=== PATIENT | male | born 1945 | race African-American/Black ===

== ENCOUNTER 2018-08-18 10:34 | Inpatient (IN) | payer MEDICARE, MEDICAID ==
[2018-08-18] VITALS (7 sets, daily range): BP systolic 115–130; BP diastolic 72–82
[~2018-08-18] VITALS: Ht 180.3 cm; Wt 69.9 kg
[~2018-08-18 10:34] MED LIST: CHOL100046 PO; DUTA0.5C15 PO; FERR-63 PO; SIMV20TA6 PO; VERA240C2 PO; [UNRECOGNIZED DRUG - CODE] PO
[2018-08-18 12:14] LABS: EOSINOPHILS % 1.1 % (0.0-5.0); LYMPHOCYTES % 14.1 % (20.0-50.0); MEAN CORPUSCULAR HEMOGLOBIN 29.2 pg (28.0-32.0); MEAN CORPUSCULAR VOLUME 92.9 fL (80.0-94.0); MEAN PLATELET VOLUME 6.7 fl (7.4-10.4); MONOCYTES % 8.8 % (2.0-8.0); PLATELET 248 x1000/uL (130-400); RED BLOOD CELL COUNT 1.96 mill/uL (4.7-6.1); RED CELL DISTRIBUTION WIDTH 15.3 % (11.6-14.6)
[2018-08-18 12:20] LABS: CHLORIDE 112 mEq/L (98-107); HEMATOCRIT. 18.2 % (42.0-52.0); HEMOGLOBIN. 5.7 g/dL (14.0-18.0)
[2018-08-18 12:28] LABS: INR 1.1; PROTHROMBIN TIME 10.8 sec (9.1-11.1)
[2018-08-18] MEDS ORDERED: PANTOPRAZOLE SODIUM 40 MG/VIAL IV ONE (12:45)
[2018-08-18] MEDS ORDERED: POTASSIUM CHLORIDE INJ 40 MEQ in DEXT 5% WATER 250 ML IV ONE (13:00)
[2018-08-18] MEDS ORDERED: IPRATROPIUM/ALBUTEROL 0.5-3(2.5)MG/3ML NEB INH PRN (15:15)
[2018-08-18] MEDS ORDERED: GUAIFENESIN 200MG/10ML SUGAR FREE UDC PO PRN (15:15)
[2018-08-18] MEDS ORDERED: MAGNESIUM/ALUMINUM HYDROXIDE/SIMETHICONE 30ML UDC PO PRN (15:15)
[2018-08-18] MEDS ORDERED: PANTOPRAZOLE 80 MG in SODIUM CHLORIDE 0.9% 100 ML IV SCH (15:15)
[2018-08-18] MEDS ORDERED: DOCUSATE SODIUM 100MG CAPSULE PO PRN (15:15)
[2018-08-18] MEDS ORDERED: CLONIDINE 0.1MG TABLET PO PRN (15:15)
[2018-08-18] MEDS ORDERED: ACETAMINOPHEN 325MG TABLET PO PRN (15:15)
[2018-08-18] MEDS ORDERED: ONDANSETRON HCL 4MG/2ML INJ IV PRN (15:15)
[2018-08-18] MEDS ORDERED: NA PHOS,M-B/NA PHOS,DI-BA ENEMA 118ML PR PRN (15:15)
[2018-08-18 16:22] LABS: FOLIC ACID (FOLATE) SERUM >20 ng/mL ng/mL (>5.38)
[2018-08-18 17:13] LABS: VITAMIN B12 SERUM 555 pg/mL (211-911)
[2018-08-18] MEDS: PANTOPRAZOLE 80 MG in SODIUM CHLORIDE 0.9% 100 ML IV SCH (21:48)
[2018-08-19] VITALS (19 sets, daily range): BP systolic 113–140; BP diastolic 68–95
[2018-08-19] MEDS: DEXT 5%/0.45% NACL 1000ML 1,000 ML IV SCH ×3 (01:39→05:26)
[2018-08-19] MEDS: PANTOPRAZOLE 80 MG in SODIUM CHLORIDE 0.9% 100 ML IV SCH (05:55)
[2018-08-19 07:02] LABS: MEAN CORPUSCULAR HEMOGLOBIN 28.8 pg (28.0-32.0); MEAN CORPUSCULAR VOLUME 88.5 fL (80.0-94.0); PLATELET 242 x1000/uL (130-400); RED BLOOD CELL COUNT 2.34 mill/uL (4.7-6.1); RED CELL DISTRIBUTION WIDTH 17.2 % (11.6-14.6)
[2018-08-19 07:25] LABS: *AMPHETAMINES SCREEN URINE NEGATIVE (NEGATIVE); *BARBITURATES SCREEN URINE NEGATIVE (NEGATIVE); *BENZODIAZEPINES SCREEN URINE NEGATIVE (NEGATIVE); *COCAINE SCREEN URINE NEGATIVE (NEGATIVE); METHADONE URINE SCREEN NEGATIVE (NEGATIVE); OPIATES URINE SCREEN NEGATIVE (NEGATIVE); PHENCYCLIDINE URINE SCREEN NEGATIVE (NEGATIVE)
[2018-08-19 07:26] LABS: CANNABINOID URINE SCREEN PRESUMTIVE POSITIVE (NEGATIVE)
[2018-08-19 07:59] LABS: HEMATOCRIT 20.7 % (42.0-52.0); HEMOGLOBIN 6.7 g/dL (14.0-18.0)
[2018-08-19] MEDS ORDERED: INFLUENZA VIRUS VACCINE(AFLURIA) 0.5ML SYR IM ONE (09:00)
[2018-08-19] MEDS ORDERED: PNEUMOCOCCAL 23-VAL P-SAC VAC 0.5 ML IM ONE (09:00)
[2018-08-19] MEDS: PANTOPRAZOLE SODIUM 40 MG/VIAL IV SCH ×2 (12:37→20:18)
[2018-08-19 13:08] LABS: TOTAL IRON BINDING CAPACITY 274 ug/dL (250-450)
[2018-08-19] MEDS ORDERED: SORBITOL 70% SOLN 30ML PO NR ×3 (16:00→20:00)
[2018-08-19 19:42] LABS: HEMATOCRIT 28.1 % (42.0-52.0); HEMOGLOBIN 8.9 g/dL (14.0-18.0)
[2018-08-20] VITALS (13 sets, daily range): BP systolic 105–154; BP diastolic 62–101
[2018-08-20 01:15] LABS: HEMATOCRIT 27.2 % (42.0-52.0); HEMOGLOBIN 8.6 g/dL (14.0-18.0)
[2018-08-20] MEDS: DEXT 5%/0.45% NACL 1000ML 1,000 ML IV SCH ×3 (02:00→22:38)
[2018-08-20] MEDS ORDERED: SORBITOL 70% SOLN 30ML PO NR (06:00)
[2018-08-20 07:02] LABS: HEMATOCRIT 23.7 % (42.0-52.0); HEMOGLOBIN 7.7 g/dL (14.0-18.0)
[2018-08-20] MEDS: PANTOPRAZOLE SODIUM 40 MG/VIAL IV SCH ×2 (09:21→21:17)
[2018-08-20] MEDS ORDERED: MIDAZOLAM HCL 5 MG/5 ML VIAL IV ONE (13:45)
[2018-08-20] MEDS ORDERED: FENTANYL CITRATE/PF 50MCG/ML 2ML VIAL IV ONE (13:47)
[2018-08-20] MEDS ORDERED: MIDAZOLAM HCL 5 MG/5 ML VIAL ONE (13:52)
[2018-08-20] MEDS ORDERED: SIMETHICONE 40 MG/0.6 ML 30ML ONE ×2 (13:52→15:35)
[2018-08-20] MEDS ORDERED: FENTANYL CITRATE/PF 50MCG/ML 2ML VIAL ONE (13:53)
[2018-08-20] MEDS ORDERED: BACTERIOSTATIC SODIUM CHLORIDE 0.9% 30ML VIAL IJ ONE (15:35)
[2018-08-20 16:33] LABS: HEMATOCRIT 28.1 % (42.0-52.0); HEMOGLOBIN 9.2 g/dL (14.0-18.0)
[2018-08-21] VITALS (8 sets, daily range): BP systolic 104–148; BP diastolic 68–101
[2018-08-21] MEDS: PANTOPRAZOLE SODIUM 40 MG/VIAL IV SCH (09:17)
[2018-08-21] MEDS: DEXT 5%/0.45% NACL 1000ML 1,000 ML IV SCH (09:17)
[2018-08-21 12:35] LABS: HEMATOCRIT 30.4 % (42.0-52.0); HEMOGLOBIN 9.9 g/dL (14.0-18.0)
== END 2018-08-21 14:50 | disposition home or self-care (01) | DRG 378 ==
LOC: ER 10:34 → 3WST 12:38 → EDBEDREQSVC 12:41 → EDBEDREQ 12:41 → SUPCPDRO 14:17 → ENRESERV 17:50
PROVIDERS: ADMIT Internal Medicine; ATTEND Internal Medicine
PROC: 30233N1 Transfusion of Nonautologous Red Blood Cells into Peripheral Vein, Percutaneous Approach (ICD-10-PCS; 2018-08-18)
PROC: 0DJD8ZZ Inspection of Lower Intestinal Tract, Via Natural or Artificial Opening Endoscopic (ICD-10-PCS; principal; 2018-08-20)
DX: K57.31 Diverticulosis of large intestine without perforation or abscess with bleeding (principal); D62 Acute posthemorrhagic anemia; E44.0 Moderate protein-calorie malnutrition; E78.5 Hyperlipidemia, unspecified; E78.00 Pure hypercholesterolemia, unspecified; E87.6 Hypokalemia; E83.51 Hypocalcemia; I10 Essential (primary) hypertension; K76.89 Other specified diseases of liver; K40.20 Bilateral inguinal hernia, without obstruction or gangrene, not specified as recurrent; I25.10 Atherosclerotic heart disease of native coronary artery without angina pectoris; F12.90 Cannabis use, unspecified, uncomplicated; K64.8 Other hemorrhoids; N40.0 Benign prostatic hyperplasia without lower urinary tract symptoms; Z79.899 Other long term (current) drug therapy; Z68.21 Body mass index [BMI] 21.0-21.9, adult
CPT/HCPCS: 36415; 74176; 80061; 80305; 82270; 82607; 82728; 82746; 83036; 83540; 83550; 84484; 85014; 85018; 85027; 86850; 86900; 86920; 93005; 93306; 93970; 96374; 96375; 97162; 97166; 99152; 99291; C9113; J2250; J3010; J3480; J3490; J7040; J7050; J7060; P9016; G0500

== ENCOUNTER 2018-09-17 13:53 | Inpatient (IN) | payer MEDICARE, MEDICAID ==
[~2018-09-17] VITALS: Ht 180.3 cm; Wt 73.5 kg
[2018-09-17] MEDS ORDERED: NITROGLYCERIN 0.4MG TABLET SL SL PRN (15:00)
[2018-09-17] MEDS ORDERED: ASPIRIN 81MG TABLET PO ONE (15:00)
[2018-09-17 15:34] LABS: EOSINOPHILS % 1.2 % (0.0-5.0); HEMATOCRIT. 38.6 % (42.0-52.0); HEMOGLOBIN. 12.6 g/dL (14.0-18.0); LYMPHOCYTES % 14.3 % (20.0-50.0); MEAN CORPUSCULAR HEMOGLOBIN 28.7 pg (28.0-32.0); MEAN PLATELET VOLUME 7.4 fl (7.4-10.4); MONOCYTES % 9.9 % (2.0-8.0); NEUTROPHILS % 73.6 % (40.0-76.0); PLATELET 254 x1000/uL (130-400); RED BLOOD CELL COUNT 4.38 mill/uL (4.7-6.1); RED CELL DISTRIBUTION WIDTH 14.8 % (11.6-14.6)
[2018-09-17 15:37] LABS: CHLORIDE 102 mEq/L (98-107)
[2018-09-17] MEDS ORDERED: POTASSIUM CHLORIDE 20MEQ TABLET SR PO ONE (17:15)
[2018-09-17 21:28] VITALS: BP 138/86
[2018-09-17] MEDS ORDERED: IPRATROPIUM/ALBUTEROL 0.5-3(2.5)MG/3ML NEB INH PRN (23:00)
[2018-09-17] MEDS ORDERED: HYDROCODONE/ACETAMINOPHEN 5/325MG TABLET PO PRN (23:00)
[2018-09-17] MEDS ORDERED: LORAZEPAM 2MG/ML CPJ IV PRN (23:00)
[2018-09-17] MEDS ORDERED: ONDANSETRON HCL 4MG/2ML INJ IV PRN (23:00)
[2018-09-17] MEDS ORDERED: ACETAMINOPHEN 325MG TABLET PO PRN (23:00)
[2018-09-17] MEDS: THIAMINE HCL 100MG TABLET PO SCH (23:59)
[2018-09-18] VITALS: BP 138/72
[2018-09-18 00:46] LABS: CLARITY URINE CLOUDY (CLEAR); COLOR URINE YELLOW (YELLOW); KETONES URINE NEGATIVE (NEGATIVE); LEUKOCYTE ESTERASE URINE 2+ (NEGATIVE); NITRITE URINE NEGATIVE (NEGATIVE); OCCULT BLOOD URINE NEGATIVE (NEGATIVE); PH URINE 8.5 (4.5-8.0); PROTEIN URINE NEGATIVE (NEGATIVE); UROBILINOGEN URINE 0.2 E.U./dL (0.2-1.0)
[2018-09-18 04:00] VITALS: BP 135/84
[2018-09-18] MEDS ORDERED: MAGNESIUM/ALUMINUM HYDROXIDE/SIMETHICONE 30ML UDC PO PRN (06:00)
[2018-09-18 08:00] VITALS: BP 144/99
[2018-09-18 08:32] LABS: CREATINE KINASE 104 IU/L (39-308)
[2018-09-18 08:33] LABS: CREATINE KINASE MB FRACTION < 1.0 ng/mL (0.5-3.6)
[2018-09-18] MEDS: THIAMINE HCL 100MG TABLET PO SCH (08:52)
[2018-09-18] MEDS ORDERED: ENOXAPARIN 40MG/0.4ML SYR SUBCUT SCH (09:00)
[2018-09-18] MEDS ORDERED: ASPIRIN 81MG EC TABLET PO SCH (09:00)
[2018-09-18] MEDS ORDERED: VERAPAMIL HCL 80 MG TABLET PO SCH (09:00)
[2018-09-18] MEDS ORDERED: DUTASTERIDE 0.5MG CAPSULE PO SCH (09:00)
[2018-09-18] MEDS ORDERED: MEDICATION NOT ON FORMULARY EA (Verapamil Hcl (Verapamil Er) 240 MG) PO SCH (09:15)
[2018-09-18] MEDS ORDERED: CHOLECALCIFEROL 1000 UNIT PO SCH (09:15)
[2018-09-18] MEDS ORDERED: FERROUS SULFATE 325MG TABLET PO SCH ×2 (09:15→17:15)
[2018-09-18] MEDS ORDERED: CHOLECALCIFEROL (D3) 1000 UNIT TABLET PO SCH (09:30)
[2018-09-18 11:29] LABS: BASOPHILS % 1.1 % (0.0-2.0); EOSINOPHILS % 2.8 % (0.0-5.0); HEMATOCRIT. 35.8 % (42.0-52.0); HEMOGLOBIN. 11.7 g/dL (14.0-18.0); LYMPHOCYTES % 10.6 % (20.0-50.0); MEAN CORPUSCULAR HEMOGLOBIN 28.7 pg (28.0-32.0); MEAN CORPUSCULAR VOLUME 87.8 fL (80.0-94.0); MEAN PLATELET VOLUME 7.5 fl (7.4-10.4); NEUTROPHILS % 74.5 % (40.0-76.0); PLATELET 251 x1000/uL (130-400); RED BLOOD CELL COUNT 4.07 mill/uL (4.7-6.1); RED CELL DISTRIBUTION WIDTH 14.4 % (11.6-14.6)
[2018-09-18 11:35] LABS: CHLORIDE 104 mEq/L (98-107)
[2018-09-18 11:38] LABS: BG BASE EXCESS 5.8 mmol/L (-2.0-2.0); BG CARBOXYHEMOGLOBIN 0.4 % (0.5-1.5); BG DEOXYHEMOGLOBIN 4.8 % (0.0-5.0); BG FRACTION INSPIRED OXYGEN 21; BG HCO3 ACT 30.5 mmol/L (22.0-26.0); BG METHEMOGLOBIN 0.4 % (0.0-1.5); BG OXYGEN SATURATION 95.2 % (92.0-98.5); BG OXYHEMOGLOBIN 94.4 % (94.0-97.0); BG PCO2 44.7 mmHg (35.0-45.0); BG PH 7.452 (7.350-7.450); BG PO2 76.8 mmHg (75.0-100.0); BG SAMPLE SITE RIGHT BRACHIAL; BG TOTAL HEMOGLOBIN 12.9 g/dL (12.0-18.0); BG VENT MODE ROOM AIR
[2018-09-18 12:00] VITALS: BP 138/86
[2018-09-18] MEDS ORDERED: POTASSIUM CHLORIDE 20MEQ TABLET SR PO NR (12:15)
[2018-09-18 13:09] VITALS: BP 138/86
[2018-09-18] MEDS ORDERED: ATORVASTATIN CALCIUM 10MG TABLET PO SCH (21:00)
[2018-09-18] MEDS ORDERED: MEDICATION NOT ON FORMULARY EA (Simvastatin 20 MG) PO SCH (21:00)
[2018-09-19] MEDS ORDERED: VERAPAMIL HCL 80 MG TABLET PO SCH (14:00)
== END 2018-09-18 14:05 | disposition home or self-care (01) | DRG 206 ==
LOC: ER 13:53 → 5WST 17:41 → EDBEDREQTM 17:44 → EDBEDREQ 17:44 → ENRESERV 19:44
PROVIDERS: ADMIT Internal Medicine Nephrology; ATTEND Internal Medicine Nephrology
DX: M94.0 Chondrocostal junction syndrome [Tietze] (principal); E78.00 Pure hypercholesterolemia, unspecified; I10 Essential (primary) hypertension; Z87.891 Personal history of nicotine dependence; Z79.899 Other long term (current) drug therapy; E87.6 Hypokalemia
CPT/HCPCS: 36415; 36600; 71045; 80048; 82375; 82550; 82553; 82805; 83880; 84484; 93005; 93306; 93970; 99285; J1650

== ENCOUNTER 2021-12-08 15:53 | Inpatient (IN) | payer MEDICARE, MEDICAID ==
[~2021-12-08] VITALS: Ht 180.3 cm; Wt 76.5 kg
[~2021-12-08 15:53] MED LIST changes: -DUTA0.5C15 PO; +DUTA0.5C37 PO; +SIMV-43 PO; -SIMV20TA6 PO
[2021-12-08] MEDS ORDERED: mobic (16:04)
[2021-12-08] MEDS ORDERED: vitorin (16:04)
[2021-12-08] MEDS ORDERED: PANTOPRAZOLE SODIUM 40 MG/VIAL IV ONE (16:30)
[2021-12-08 16:51] LABS: MEAN CORPUSCULAR HEMOGLOBIN 19.6 pg (28.0-32.0); MEAN CORPUSCULAR VOLUME 67.2 fL (80.0-94.0); MEAN PLATELET VOLUME 6.5 fl (7.4-10.4); PLATELET 220 x1000/uL (130-400); RED BLOOD CELL COUNT 2.06 mill/uL (4.7-6.1); RED CELL DISTRIBUTION WIDTH 20.2 % (11.6-14.6)
[2021-12-08 17:01] LABS: CHLORIDE 111 mEq/L (98-107)
[2021-12-08 17:02] LABS: HEMATOCRIT. 13.9 % (42.0-52.0); HEMOGLOBIN. 4.1 g/dL (14.0-18.0)
[2021-12-08 17:09] LABS: C REACTIVE PROTEIN QUANT 0.9 mg/L (0.0-3.0); CREATINE KINASE 103 IU/L (39-308); ETHANOL BLOOD < 10 mg/dL; TOTAL IRON BINDING CAPACITY 393 ug/dL (250-450)
[2021-12-08] MEDS ORDERED: CEFTRIAXONE 1 G PREMIX 50 ML IV NR (17:30)
[2021-12-08 17:48] LABS: PLATELET ESTIMATE NORMAL
[2021-12-08] MEDS ORDERED: CLONIDINE 0.1MG TABLET PO PRN (22:15)
[2021-12-08] MEDS ORDERED: HYDROCODONE/ACETAMINOPHEN 5/325MG TABLET PO PRN (22:15)
[2021-12-08] MEDS ORDERED: DOCUSATE SODIUM 100MG CAPSULE PO PRN (22:15)
[2021-12-08] MEDS ORDERED: IPRATROPIUM/ALBUTEROL 0.5-3(2.5)MG/3ML NEB HHN PRN (22:15)
[2021-12-08] MEDS ORDERED: MAGNESIUM/ALUMINUM HYDROXIDE/SIMETHICONE 30ML UDC PO PRN (22:15)
[2021-12-08] MEDS ORDERED: MORPHINE SULFATE 2 MG/ML CPJ (NOT FOR IM USE) IV PRN (22:15)
[2021-12-08] MEDS ORDERED: GUAIFENESIN 200MG/10ML SUGAR FREE UDC PO PRN (22:15)
[2021-12-08] MEDS ORDERED: HYDRALAZINE 20MG/ML VIAL IV PRN (22:15)
[2021-12-08] MEDS ORDERED: LORAZEPAM 2MG/ML CPJ IV PRN (22:15)
[2021-12-08] MEDS ORDERED: ONDANSETRON HCL 4MG/2ML INJ IV PRN (22:15)
[2021-12-08] MEDS ORDERED: DIPHENHYDRAMINE 50MG/ML VIAL IV PRN (22:15)
[2021-12-08 22:55] LABS: CLARITY URINE CLEAR (CLEAR); COLOR URINE YELLOW (YELLOW); KETONES URINE NEGATIVE (NEGATIVE); LEUKOCYTE ESTERASE URINE 2+ (NEGATIVE); NITRITE URINE NEGATIVE (NEGATIVE); OCCULT BLOOD URINE NEGATIVE (NEGATIVE); PROTEIN URINE NEGATIVE (NEGATIVE); UROBILINOGEN URINE 0.2 E.U./dL (0.2-1.0)
[2021-12-09] VITALS (21 sets, daily range): BP systolic 115–156; BP diastolic 72–97
[2021-12-09 01:29] LABS: HEMATOCRIT 20.4 % (42.0-52.0); HEMOGLOBIN 6.3 g/dL (14.0-18.0)
[2021-12-09] MEDS: SODIUM CHLORIDE 0.9% INJ 3ML FLUSH IVF SCH ×3 (06:11→22:00)
[2021-12-09 06:44] LABS: CHLORIDE 113 mEq/L (98-107)
[2021-12-09] MEDS ORDERED: POTASSIUM CHLORIDE 20MEQ TABLET SR PO SCH (09:00)
[2021-12-09] MEDS: PANTOPRAZOLE SODIUM 40 MG/VIAL IV SCH ×2 (09:16→20:52)
[2021-12-09 09:26] LABS: BASOPHILS % 1.2 % (0.0-2.0); EOSINOPHILS % 0.9 % (0.0-5.0); HEMATOCRIT. 21.9 % (42.0-52.0); LYMPHOCYTES % 9.7 % (20.0-50.0); MEAN CORPUSCULAR HEMOGLOBIN 24.3 pg (28.0-32.0); MEAN CORPUSCULAR VOLUME 76.2 fL (80.0-94.0); MEAN PLATELET VOLUME 6.7 fl (7.4-10.4); MONOCYTES % 14.5 % (2.0-8.0); NEUTROPHILS % 73.7 % (40.0-76.0); PLATELET 152 x1000/uL (130-400); RED BLOOD CELL COUNT 2.87 mill/uL (4.7-6.1); RED CELL DISTRIBUTION WIDTH 22.9 % (11.6-14.6)
[2021-12-09 09:50] LABS: TOTAL IRON BINDING CAPACITY 354 ug/dL (250-450)
[2021-12-09 10:23] LABS: VITAMIN B12 SERUM 314 pg/mL (211-911)
[2021-12-09 10:47] LABS: FOLIC ACID (FOLATE) SERUM > 20.00 ng/mL (>5.38)
[2021-12-09 12:05] LABS: HEMATOCRIT 23.1 % (42.0-52.0); HEMOGLOBIN 7.3 g/dL (14.0-18.0)
[2021-12-09 12:06] LABS: FERRITIN 7 ng/mL (22-322)
[2021-12-09] MEDS: ACETAMINOPHEN 325MG TABLET PO PRN (13:15)
[2021-12-09] MEDS ORDERED: NALOXONE HCL 0.4MG/ML VIAL IV PRN (14:45)
[2021-12-09] MEDS: IRON SUCROSE COMPLEX 100 MG/5 ML ML IV SCH (16:16)
[2021-12-09 19:46] LABS: HEMATOCRIT 26.8 % (42.0-52.0); HEMOGLOBIN 8.6 g/dL (14.0-18.0)
[2021-12-09 19:55] LABS: PROTHROMBIN TIME 11.2 sec (9.6-11.0)
[2021-12-10] VITALS (10 sets, daily range): BP systolic 111–138; BP diastolic 44–92
[2021-12-10] MEDS: DEXT 5%/0.45% NACL 1000ML 1,000 ML IV SCH (00:26)
[2021-12-10 00:51] LABS: HEMATOCRIT 24.7 % (42.0-52.0); HEMOGLOBIN 7.9 g/dL (14.0-18.0)
[2021-12-10] MEDS: SODIUM CHLORIDE 0.9% INJ 3ML FLUSH IVF SCH ×3 (06:00→21:15)
[2021-12-10 06:03] LABS: PROTHROMBIN TIME 11.2 sec (9.6-11.0)
[2021-12-10 06:21] LABS: CHLORIDE 108 mEq/L (98-107)
[2021-12-10 06:41] LABS: BASOPHILS % 1.1 % (0.0-2.0); EOSINOPHILS % 2.2 % (0.0-5.0); HEMATOCRIT. 25.2 % (42.0-52.0); HEMOGLOBIN. 8.1 g/dL (14.0-18.0); LYMPHOCYTES % 11.1 % (20.0-50.0); MEAN CORPUSCULAR HEMOGLOBIN 24.6 pg (28.0-32.0); MEAN CORPUSCULAR VOLUME 76.3 fL (80.0-94.0); MEAN PLATELET VOLUME 8.2 fl (7.4-10.4); MONOCYTES % 12.8 % (2.0-8.0); NEUTROPHILS % 72.8 % (40.0-76.0); PLATELET 143 x1000/uL (130-400); RED CELL DISTRIBUTION WIDTH 21.6 % (11.6-14.6)
[2021-12-10] MEDS: PANTOPRAZOLE SODIUM 40 MG/VIAL IV SCH ×2 (08:41→21:15)
[2021-12-10] MEDS ORDERED: POTASSIUM CHLORIDE 20MEQ TABLET SR PO NR ×2 (09:15→10:18)
[2021-12-10] MEDS ORDERED: KCL 20MEQ/100ML PREMIX 100 ML IV NR (10:30)
[2021-12-10] MEDS ORDERED: CYANOCOBALAMIN 1000MCG/ML VIAL IM SCH (12:15)
[2021-12-10] MEDS: CYANOCOBALAMIN 1000MCG/ML VIAL SUBCUT SCH (12:45)
[2021-12-10] MEDS ORDERED: PROPOFOL 200MG/20ML VIAL IV ONE (12:57)
[2021-12-10] MEDS ORDERED: ONDANSETRON HCL 4MG/2ML INJ ONE (12:59)
[2021-12-10] MEDS ORDERED: FENTANYL CITRATE/PF 50MCG/ML 2ML VIAL ONE (13:00)
[2021-12-10] MEDS ORDERED: DEXAMETHASONE 4MG/ML 1ML VIAL ONE (13:00)
[2021-12-10] MEDS ORDERED: MIDAZOLAM HCL 2 MG/2 ML VIAL ONE (13:00)
[2021-12-10] MEDS: IRON SUCROSE COMPLEX 100 MG/5 ML ML IV SCH (16:05)
[2021-12-10 16:17] LABS: HEMATOCRIT 24.3 % (42.0-52.0); HEMOGLOBIN 7.7 g/dL (14.0-18.0)
[2021-12-10 20:32] LABS: HEMATOCRIT 30.2 % (42.0-52.0); HEMOGLOBIN 9.5 g/dL (14.0-18.0)
[2021-12-11] VITALS (12 sets, daily range): BP systolic 102–148; BP diastolic 62–85
[2021-12-11] MEDS: SODIUM CHLORIDE 0.9% INJ 3ML FLUSH IVF SCH ×3 (06:17→21:05)
[2021-12-11 06:19] LABS: HEMATOCRIT. 24.5 % (42.0-52.0); HEMOGLOBIN. 7.9 g/dL (14.0-18.0); MEAN CORPUSCULAR HEMOGLOBIN 24.9 pg (28.0-32.0); MEAN PLATELET VOLUME 6.9 fl (7.4-10.4); PLATELET 149 x1000/uL (130-400); RED BLOOD CELL COUNT 3.18 mill/uL (4.7-6.1); RED CELL DISTRIBUTION WIDTH 22.9 % (11.6-14.6)
[2021-12-11 06:25] LABS: CHLORIDE 110 mEq/L (98-107)
[2021-12-11] MEDS: CYANOCOBALAMIN 1000MCG/ML VIAL SUBCUT SCH (09:54)
[2021-12-11] MEDS: PANTOPRAZOLE SODIUM 40 MG/VIAL IV SCH ×2 (09:55→21:05)
[2021-12-11 12:24] LABS: HEMATOCRIT 25.2 % (42.0-52.0)
[2021-12-11] MEDS: IRON SUCROSE COMPLEX 100 MG/5 ML ML IV SCH (14:07)
[2021-12-11 16:33] LABS: PLATELET ESTIMATE NORMAL
[2021-12-12] VITALS (7 sets, daily range): BP systolic 122–144; BP diastolic 62–92
[2021-12-12] MEDS: DEXT 5%/0.45% NACL 1000ML 1,000 ML IV SCH (02:00)
[2021-12-12] MEDS: SODIUM CHLORIDE 0.9% INJ 3ML FLUSH IVF SCH (05:02)
[2021-12-12 07:03] LABS: BASOPHILS % 0.8 % (0.0-2.0); EOSINOPHILS % 3.6 % (0.0-5.0); HEMATOCRIT. 25.3 % (42.0-52.0); HEMOGLOBIN. 8.2 g/dL (14.0-18.0); LYMPHOCYTES % 11.2 % (20.0-50.0); MEAN CORPUSCULAR HEMOGLOBIN 25.3 pg (28.0-32.0); MEAN CORPUSCULAR VOLUME 78.6 fL (80.0-94.0); MEAN PLATELET VOLUME 8.3 fl (7.4-10.4); MONOCYTES % 12.3 % (2.0-8.0); NEUTROPHILS % 72.1 % (40.0-76.0); PLATELET 164 x1000/uL (130-400); RED BLOOD CELL COUNT 3.22 mill/uL (4.7-6.1)
[2021-12-12 07:46] LABS: CHLORIDE 111 mEq/L (98-107)
[2021-12-12] MEDS: PANTOPRAZOLE SODIUM 40 MG/VIAL IV SCH (09:15)
[2021-12-12] MEDS: CYANOCOBALAMIN 1000MCG/ML VIAL SUBCUT SCH (09:15)
[2021-12-12] MEDS ORDERED: POTASSIUM CHLORIDE 20MEQ TABLET SR PO NR (10:15)
[2021-12-12] MEDS: ACETAMINOPHEN 325MG TABLET PO PRN (10:35)
== END 2021-12-12 16:10 | disposition home or self-care (01) | DRG 378 ==
LOC: ER 15:53 → 5EST 18:50 → EDBEDREQ 19:02 → ENRESERV 22:26 → 5EST 12-09 01:04
PROVIDERS: ADMIT Internal Medicine; ATTEND Internal Medicine
PROC: 30233N1 Transfusion of Nonautologous Red Blood Cells into Peripheral Vein, Percutaneous Approach (ICD-10-PCS; principal; 2021-12-08)
PROC: 0DB78ZX Excision of Stomach, Pylorus, Via Natural or Artificial Opening Endoscopic, Diagnostic (ICD-10-PCS; 2021-12-10)
DX: K29.71 Gastritis, unspecified, with bleeding (principal); E46 Unspecified protein-calorie malnutrition; E87.0 Hyperosmolality and hypernatremia; R65.10 Systemic inflammatory response syndrome (SIRS) of non-infectious origin without acute organ dysfunction; E78.00 Pure hypercholesterolemia, unspecified; E78.5 Hyperlipidemia, unspecified; I10 Essential (primary) hypertension; I70.0 Atherosclerosis of aorta; K44.9 Diaphragmatic hernia without obstruction or gangrene; D50.0 Iron deficiency anemia secondary to blood loss (chronic); E86.0 Dehydration; E87.6 Hypokalemia; E88.09 Other disorders of plasma-protein metabolism, not elsewhere classified; K57.31 Diverticulosis of large intestine without perforation or abscess with bleeding; K40.90 Unilateral inguinal hernia, without obstruction or gangrene, not specified as recurrent; K64.8 Other hemorrhoids; K76.89 Other specified diseases of liver; Z79.899 Other long term (current) drug therapy; Z68.23 Body mass index [BMI] 23.0-23.9, adult
CPT/HCPCS: 36415; 71045; 74176; 80048; 80053; 80320; 81003; 82270; 82550; 82607; 82728; 82746; 83540; 83550; 83605; 84132; 84145; 85014; 85018; 85025; 85044; 86140; 86850; 86900; 86920; 87426; 88305; 88312; 88313; 93005; 99291; C9113; J0696; J1100; J2250; J2405; J2704; J3010; J3420; J3480; P9016; G0480

== ENCOUNTER 2023-08-17 13:06 | Emergency (ER) | payer MEDICARE, MEDICAID ==
[~2023-08-17] VITALS: Ht 180.3 cm; Wt 81.0 kg
[~2023-08-17 13:06] MED LIST changes: +mobic; +vitorin
[2023-08-17 14:02] VITALS: BP 120/74; PULSE 96; RESP 16; TEMP 98.3; O2SAT 100
[2023-08-17 14:58] LABS: BASOPHILS % 0.8 % (0.0-2.0); HEMATOCRIT. 32.6 % (42.0-52.0); HEMOGLOBIN. 10.4 g/dL (14.0-18.0); LYMPHOCYTES % 11.5 % (20.0-50.0); MEAN CORPUSCULAR HEMOGLOBIN 26.2 pg (28.0-32.0); MEAN CORPUSCULAR HGB CONC 31.7 g/dL (31.0-37.0); MEAN CORPUSCULAR VOLUME 82.4 fL (80.0-94.0); MEAN PLATELET VOLUME 7.2 fl (7.4-10.4); MONOCYTES % 8.5 % (2.0-8.0); NEUTROPHILS % 78.2 % (40.0-76.0); PLATELET 270 x1000/uL (130-400); RED BLOOD CELL COUNT 3.96 mill/uL (4.7-6.1); RED CELL DISTRIBUTION WIDTH 15.8 % (11.6-14.6); WHITE BLOOD COUNT 6.2 x1000/uL (4.5-11.0)
[2023-08-17 15:13] LABS: ALANINE AMINOTRANSFERASE 13 IU/L (10-49); ALBUMIN 4.8 g/dL (3.2-4.8); ASPARTATE AMINOTRANSFERASE 18 IU/L (<34); BILIRUBIN TOTAL 0.5 mg/dL (0.1-1.0); CALCIUM 9.2 mg/dL (8.7-10.4); CARBON DIOXIDE 29 mEq/L (21-32); CHLORIDE 103 mEq/L (98-107); CREATININE 1.4 mg/dL (0.6-1.3); GLUCOSE 89 mg/dL (70-105); POTASSIUM 3.8 mEq/L (3.5-5.1); PROTEIN TOTAL 7.9 g/dL (6.0-8.3); SODIUM 139 mEq/L (136-145); UREA NITROGEN BLOOD 18 mg/dL (9-23)
== END 2023-08-17 16:03 | disposition home or self-care (01) ==
LOC: ER 13:06
DX: R60.9 Edema, unspecified (principal); E78.00 Pure hypercholesterolemia, unspecified; I10 Essential (primary) hypertension; K92.2 Gastrointestinal hemorrhage, unspecified; Z79.899 Other long term (current) drug therapy
CPT/HCPCS: 36415; 71045; 80053; 83880; 85025; 93971; 99284

== ENCOUNTER 2025-01-12 14:12 | Inpatient (IN) | payer MEDICARE, MEDICAID ==
[~2025-01-12] VITALS: Ht 172.7 cm; Wt 74.9 kg
[2025-01-12 14:19] VITALS: O2SAT 99
[2025-01-12 15:29] LABS: BASOPHILS % 0.8 % (0.0-2.0); EOSINOPHILS % 1.3 % (0.0-5.0); HEMATOCRIT. 34.8 % (42.0-52.0); HEMOGLOBIN. 11.5 g/dL (14.0-18.0); LYMPHOCYTES % 14.6 % (20.0-50.0); MEAN PLATELET VOLUME 7.3 fl (7.4-10.4); MONOCYTES % 9.7 % (2.0-8.0); NEUTROPHILS % 73.6 % (40.0-76.0); PLATELET 207 x1000/uL (130-400); RED BLOOD CELL COUNT 3.97 mill/uL (4.7-6.1); RED CELL DISTRIBUTION WIDTH 15.7 % (11.6-14.6)
[2025-01-12 15:40] LABS: INR 1.0
[2025-01-12 15:44] LABS: CREATININE 1.5 mg/dL (0.6-1.3)
[2025-01-12 15:45] LABS: UREA NITROGEN BLOOD 19 mg/dL (9-23)
[2025-01-12 15:46] LABS: ASPARTATE AMINOTRANSFERASE 19 IU/L (<34)
[2025-01-12 15:47] LABS: BILIRUBIN TOTAL 0.4 mg/dL (0.1-1.0); PROTEIN TOTAL 6.7 g/dL (6.0-8.3)
[2025-01-12] MEDS: POTASSIUM CHLORIDE 20MEQ TABLET SR PO ONE (18:48)
[2025-01-12] MEDS ORDERED: DOCUSATE SODIUM 100MG CAPSULE PO PRN (19:45)
[2025-01-12] MEDS ORDERED: ACETAMINOPHEN 325MG TABLET PO PRN (19:45)
[2025-01-12] MEDS ORDERED: IPRATROPIUM/ALBUTEROL 0.5-3(2.5)MG/3ML NEB HHN PRN (19:45)
[2025-01-12] MEDS ORDERED: GUAIFENESIN 200MG/10ML SUGAR FREE UDC PO PRN (19:45)
[2025-01-12] MEDS ORDERED: MAGNESIUM/ALUMINUM HYDROXIDE/SIMETHICONE 30ML UDC PO PRN (19:45)
[2025-01-12] MEDS ORDERED: ONDANSETRON HCL 4MG/2ML INJ IV PRN (19:45)
[2025-01-12 20:00] VITALS: BP 178/98; PULSE 62; RESP 19; TEMP 36.4; O2SAT 99
[2025-01-12] MEDS ORDERED: VERA240T94 PO (20:02)
[2025-01-12 20:47] VITALS: BP 178/98; PULSE 69; RESP 18; TEMP 36.418
[2025-01-12] MEDS: HYDRALAZINE 20MG/ML VIAL IV PRN (21:56)
[2025-01-12] MEDS: POTASSIUM CHLORIDE 20MEQ TABLET SR PO SCH (22:41)
[2025-01-12] MEDS: VERAPAMIL HCL 80 MG TABLET PO SCH (22:47)
[2025-01-13] VITALS: BP 131/74; PULSE 62; RESP 19; TEMP 36.8; O2SAT 100
[2025-01-13 00:46] LABS: PHOSPHORUS 1.8 mg/dL (2.5-4.9)
[2025-01-13 00:51] LABS: VITAMIN B12 SERUM > 2000 pg/mL (211-911)
[2025-01-13 04:00] VITALS: BP 142/88; PULSE 72; RESP 19; TEMP 36.7; O2SAT 100
[2025-01-13 06:38] LABS: BASOPHILS % 0.8 % (0.0-2.0); EOSINOPHILS % 1.7 % (0.0-5.0); HEMATOCRIT. 35.5 % (42.0-52.0); HEMOGLOBIN. 12.1 g/dL (14.0-18.0); LYMPHOCYTES % 15.0 % (20.0-50.0); MEAN PLATELET VOLUME 7.8 fl (7.4-10.4); MONOCYTES % 12.5 % (2.0-8.0); NEUTROPHILS % 70.0 % (40.0-76.0); PLATELET 227 x1000/uL (130-400); RED BLOOD CELL COUNT 4.11 mill/uL (4.7-6.1); RED CELL DISTRIBUTION WIDTH 15.6 % (11.6-14.6)
[2025-01-13 07:03] LABS: T4 FREE 1.35 ng/dL (0.89-1.76)
[2025-01-13 07:07] LABS: CREATININE 1.5 mg/dL (0.6-1.3)
[2025-01-13 07:08] LABS: UREA NITROGEN BLOOD 18.0 mg/dL (9-23)
[2025-01-13 08:00] VITALS: BP 135/79; PULSE 59; RESP 20; TEMP 36.3; O2SAT 97
[2025-01-13] MEDS: AMLODIPINE 5MG TABLET PO SCH (09:16)
[2025-01-13] MEDS: DUTASTERIDE 0.5MG CAPSULE PO SCH (09:16)
[2025-01-13] MEDS ORDERED: POTASSIUM CHLORIDE 20MEQ TABLET SR PO SCH (09:45)
[2025-01-13 12:00] VITALS: BP 157/91; PULSE 63; RESP 20; TEMP 35.9; O2SAT 98
[2025-01-13] MEDS: POTASSIUM PHOSPHATE 20 MMOL in DEXT 5% WATER 243.3333 ML IV SCH (12:49)
[2025-01-13 16:00] VITALS: BP 167/98; PULSE 65; RESP 20; TEMP 35.7; O2SAT 97
[2025-01-13 20:00] VITALS: BP 154/80; PULSE 63; RESP 18; TEMP 36.4; O2SAT 97
[2025-01-13] MEDS: ACETAMINOPHEN 325MG TABLET PO PRN (21:26)
[2025-01-14] VITALS: BP 161/75; PULSE 64; RESP 18; TEMP 36.6; O2SAT 100
[2025-01-14 00:42] VITALS: BP 155/68
[2025-01-14 04:00] VITALS: BP 138/83; PULSE 89; RESP 18; TEMP 36.6; O2SAT 96
[2025-01-14 08:00] VITALS: BP 148/89; PULSE 73; RESP 18; TEMP 36.5; O2SAT 100
[2025-01-14 08:34] LABS: BASOPHILS % 0.9 % (0.0-2.0); EOSINOPHILS % 2.2 % (0.0-5.0); HEMATOCRIT. 37.5 % (42.0-52.0); HEMOGLOBIN. 12.4 g/dL (14.0-18.0); LYMPHOCYTES % 14.0 % (20.0-50.0); MEAN PLATELET VOLUME 7.4 fl (7.4-10.4); MONOCYTES % 12.6 % (2.0-8.0); NEUTROPHILS % 70.3 % (40.0-76.0); PLATELET 243 x1000/uL (130-400); RED BLOOD CELL COUNT 4.30 mill/uL (4.7-6.1); RED CELL DISTRIBUTION WIDTH 15.5 % (11.6-14.6)
[2025-01-14 08:51] LABS: CREATININE 1.4 mg/dL (0.6-1.3)
[2025-01-14 08:52] LABS: UREA NITROGEN BLOOD 16 mg/dL (9-23)
[2025-01-14 08:54] LABS: PHOSPHORUS 3.5 mg/dL (2.5-4.9)
== END 2025-01-14 12:00 | disposition home health service (06) | DRG 303 ==
LOC: ER 14:12 → 8WST 18:12 → EDBEDREQTM 18:14 → EDBEDREQ 18:14 → ENRESERV 19:01
PROVIDERS: ADMIT Hospitalist; ATTEND Hospitalist
DX: I87.8 Other specified disorders of veins (principal); N17.9 Acute kidney failure, unspecified; D64.9 Anemia, unspecified; K57.30 Diverticulosis of large intestine without perforation or abscess without bleeding; N18.9 Chronic kidney disease, unspecified; I13.0 Hypertensive heart and chronic kidney disease with heart failure and stage 1 through stage 4 chronic kidney disease, or unspecified chronic kidney disease; I50.9 Heart failure, unspecified; E87.6 Hypokalemia; T50.2X5A Adverse effect of carbonic-anhydrase inhibitors, benzothiadiazides and other diuretics, initial encounter; N40.0 Benign prostatic hyperplasia without lower urinary tract symptoms; E78.00 Pure hypercholesterolemia, unspecified; K57.90 Diverticulosis of intestine, part unspecified, without perforation or abscess without bleeding; F10.10 Alcohol abuse, uncomplicated; Y90.9 Presence of alcohol in blood, level not specified; Z87.891 Personal history of nicotine dependence
CPT/HCPCS: 36415; 76770; 80048; 80053; 82607; 82728; 83036; 83540; 83550; 83735; 84100; 84132; 84439; 84443; 85025; 85379; 93970; 99285; A4606; J0360; J3490; J7060